=== PATIENT | male | born 1970 | race Caucasian/White ===

== ENCOUNTER 2019-03-27 03:04 | Emergency (ER) | payer OTHER ==
[~2019-03-27] VITALS: Ht 180.3 cm; Wt 136.4 kg
[2019-03-27 03:56] VITALS: BP 160/103
== END 2019-03-27 04:31 | disposition home or self-care (01) ==
LOC: ER 03:05
DX: M25.562 Pain in left knee (principal); G62.9 Polyneuropathy, unspecified
CPT/HCPCS: 82948; 93005; 99283

== ENCOUNTER 2019-12-01 00:44 | Emergency (ER) | payer OTHER ==
[~2019-12-01] VITALS: Ht 180.3 cm; Wt 141.6 kg
--- NOTE | 2019-12-01 01:30 | NUR ---
The pain seems muscular in nature
--- NOTE | 2019-12-01 01:34 | NUR ---
informed MD that labs will be held until he assesses the pt but ua sent to lab. The pt states that the pain is constant, no changes with urination. States when he rolls his hand over the area that it hurts and when he got into and out of the tub it hurts. The pain doesn't radiate, it just is in the one area.
[2019-12-01 01:42] LABS: CLARITY,URINE CLEAR (Clear); COLOR,URINE YELLOW (Yellow); GLUCOSE, URINE NEGATIVE (Neg); KETONES,URINE NEGATIVE (Neg); LEUKOCYTE ESTERASE ,URINE NEGATIVE (Neg); NITRITES, URINE NEGATIVE (Neg); OCCULT BLOOD,URINE NEGATIVE (Neg); PROTEIN,URINE NEGATIVE (Neg); UROBILINOGEN,URINE 0.2 E.U/dL (0.2-1.0)
[2019-12-01] MEDS ORDERED: normal saline 1000ML IV soln IVB ONE (01:45)
[2019-12-01] MEDS ORDERED: ketorolac trometh. 30mg/ml inj. IV ONE (01:45)
[2019-12-01 01:47] LABS: UA COLLECTION TYPE VOIDED
[2019-12-01 02:20] LABS: BASOPHILS # (AUTO) 0.1 X10'3 (0-0.2); BASOPHILS % (AUTO) 0.8 % (0-1); EOSINOPHILS # (AUTO) 0.1 X10'3 (0-0.9); EOSINOPHILS % (AUTO) 0.8 % (0-6); HEMATOCRIT 45.3 % (42.0-52.0); HEMOGLOBIN 15.5 g/dl (14.0-17.9); LYMPHOCYTES # (AUTO) 1.9 X10'3 (1.1-4.8); LYMPHOCYTES % (AUTO) 27.7 % (21-51); MEAN CORPUSCULAR HEMOGLOBIN 32.5 PG (27.0-31.0); MEAN CORPUSCULAR HGB CONC 34.2 g/dL (33.0-36.5); MEAN CORPUSCULAR VOLUME 95.1 FL (78-98); MEAN PLATELET VOLUME 9.7 FL (7.4-10.4); MONOCYTES # (AUTO) 0.5 X10'3 (0-0.9); MONOCYTES % (AUTO) 6.9 % (2-12); NEUTROPHILS # (AUTO) 4.4 X10'3 (1.8-7.7); NEUTROPHILS % (AUTO) 63.8 % (42-75); PLATELET COUNT 144 X10'3 (140-440); RED BLOOD COUNT 4.77 X10'6 (4.70-6.10); WHITE BLOOD COUNT 6.9 X10'3 (4.5-11.0)
[2019-12-01] MEDS ORDERED: METH-360 PO (02:21)
[2019-12-01] MEDS ORDERED: DIAZ-351 PO (02:21)
[2019-12-01 02:47] LABS: ALANINE AMINOTRANSFERASE 91 U/L (12-78); ALBUMIN/GLOBULIN RATIO 1.3 (1.1-1.5); ALKALINE PHOSPHATASE 74 IU/L (46-116); ANION GAP 9 (8-16); ASPARTATE AMINO TRANSFERASE 33 U/L (10-37); BILIRUBIN,TOTAL 0.6 MG/DL (0.1-1.0); BLOOD UREA NITROGEN 19 MG/DL (7-18); BUN/CREATININE RATIO 22.9 (5.4-32.0); CALCIUM 9.2 MG/DL (8.5-10.1); CHLORIDE 102 MMOL/L (99-107); CREATININE 0.83 MG/DL (0.60-1.10); GLUCOSE 144 MG/DL (70-104); LIPASE 115 U/L (73-393); POTASSIUM 3.9 MMOL/L (3.5-5.1); SODIUM 138 MMOL/L (135-145); TOTAL CARBON DIOXIDE 27.3 MMOL/L (24-32); TOTAL PROTEIN 7.1 G/DL (6.4-8.2); eGFR > 90 ML/MIN
[2019-12-01 03:21] VITALS: BP 156/98
== END 2019-12-01 03:23 | disposition home or self-care (01) ==
LOC: ER 00:45
DX: M54.5 Low back pain (principal); E11.65 Type 2 diabetes mellitus with hyperglycemia; I10 Essential (primary) hypertension; R10.31 Right lower quadrant pain; E11.42 Type 2 diabetes mellitus with diabetic polyneuropathy; Z79.899 Other long term (current) drug therapy
CPT/HCPCS: 36415; 74176; 80053; 81003; 82948; 83690; 85025; 96374; 99284; J1885; J7030